=== PATIENT | female | born 1970 | race Caucasian/White ===

== ENCOUNTER 2018-11-22 14:42 | Outpatient (CLI) | payer MEDICAID | END 2018-11-22 14:43 | disposition critical access hospital (66) | LOC: EMS 14:42 | PROVIDERS: ATTEND Surgery | DX: R51 Headache (principal); M54.2 Cervicalgia; M79.641 Pain in right hand; Y04.2XXA Assault by strike against or bumped into by another person, initial encounter | CPT/HCPCS: A0425; A0429; A0999 ==

== ENCOUNTER 2018-11-22 15:03 | Emergency (ER) | payer BC, MEDICAID, OTHER ==
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
--- NOTE | 2018-11-22 16:03 | XRAY Report ---
Reason: back/hand inj Procedure Date: 11/22/2018 Accession Number: [id number] / [id number] Procedure: XR - Hand 3 View RT CPT Code: FULL RESULT: EXAM: RIGHT HAND RADIOGRAPHY EXAM DATE: 11/22/2018 03:24 PM. CLINICAL HISTORY: Back/hand inj. COMPARISON: None. TECHNIQUE: 3 views. FINDINGS: Bones: No definite fractures or acute bone lesions. Joints: Mild degenerative disease of the thumb IP joint. Small adjacent chronic appearing nodular calcification may work represent incidental chronic small ossicles versus chronic, degenerative change or remote injury. Appearance is not suspicious for acute fracture fragments Soft Tissues: Normal. No soft tissue swelling. IMPRESSION: 1. No definite acute abnormality. 2. 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 [facility]
--- NOTE | 2018-11-22 16:05 | XRAY Report ---
Reason: back/hand inj Procedure Date: 11/22/2018 Accession Number: [id number] / [id number] Procedure: XR - Thoracic Spine 2 View CPT Code: FULL RESULT: EXAM: THORACIC SPINE RADIOGRAPHY EXAM DATE: 11/22/2018 03:46 PM. CLINICAL HISTORY: Back/hand inj. COMPARISON: None. TECHNIQUE: 3 views. FINDINGS: Alignment: Very mild lower thoracic levoconvex at a curvature. Bones: No fractures or bone lesions. Disks: Very mild multilevel thoracic vertebral body spurring. Disk heights are maintained. Limited demonstration of cervical spine degenerative disk disease. Soft Tissues: Normal. The visualized lungs and cardiomediastinal silhouette are normal. IMPRESSION: 1. No acute abnormality. 2. Very mild thoracic degenerative disease. [facility]
[2018-11-22 16:25] VITALS: BP 119/98
== END 2018-11-22 16:24 | disposition home or self-care (01) ==
LOC: EDUNIT# → ED 15:03
DX: S63.636A Sprain of interphalangeal joint of right little finger, initial encounter (principal); S20.221A Contusion of right back wall of thorax, initial encounter; Y04.8XXA Assault by other bodily force, initial encounter; I10 Essential (primary) hypertension; F17.200 Nicotine dependence, unspecified, uncomplicated
CPT/HCPCS: 72070; 99283

== ENCOUNTER 2018-12-20 22:12 | Outpatient (CLI) | payer MEDICAID | END 2018-12-20 22:13 | disposition short-term general hospital (02) | LOC: EMS 22:12 | PROVIDERS: ATTEND Surgery | DX: S06.9X9A Unspecified intracranial injury with loss of consciousness of unspecified duration, initial encounter (principal); V47.5XXA Car driver injured in collision with fixed or stationary object in traffic accident, initial encounter; Y92.410 Unspecified street and highway as the place of occurrence of the external cause | CPT/HCPCS: A0425; A0433; A0999 ==